=== PATIENT | female | born 1960 ===

== ENCOUNTER 2018-03-30 06:40 | Day surgery (SDC) | payer OTHER ==
[2018-01-06 11:32] VITALS: BMI 39.4
--- NOTE | 2018-03-30 07:51 | CP.SDSHP ---
Same Day Surgery H & P - History Proposed Procedure: EGD Pre-Op Diagnosis: SEE NOTES - Previous Medical/Surgical History Cardiac: Hypertension Neuro: Other Misc: Other Pain: 4.Moderate Pain - Allergies Allergies: Allergies No Known Allergies Allergy (Verified 12/13/17 10:47) - Physical Exam General Appearance: N Vital Signs: Vital Signs 03/30/18 07:09 Temperature 97.3 F L Pulse Rate 60 Respiratory 19 Rate Blood Pressure 109/70 O2 Sat by Pulse 99 Oximetry Mental Status: Alert & Oriented x3 Neuro: WNL Heart: Other Lungs: WNL GI: Other - {Optional Preform as Required} Breast: WNL Abdomen: Other Rectal: Other Integument: WNL : WNL Ortho: WNL ENT: WNL - Impression Pt. Evaluated Today:Candidate for Anesthesia & Procedure: Yes - Date & Time Time: 07:50 Short Stay Discharge - Short Stay Discharge Admitting Diagnosis/Reason for Visit: DYSPEPSIA, HISTORY OF GASTRIC POLYP Disposition: HOME/ ROUTINE
[2018-03-30] MEDS ORDERED: Lactated Ringer's 1,000 ML IV ONE (07:55)
[2018-03-30] MEDS ORDERED: Propofol 10 mg/ml Inj (20 ML) ONE (07:57)
[2018-03-30] MEDS ORDERED: Belladonna-Phenobarbital PO ONE (08:30)
[2018-03-30] MEDS ORDERED: Sucralfate 1 gm/10 ml Oral Susp UD PO ONE (08:30)
[2018-03-30 08:36] VITALS: TEMP 97.5; O2SAT 100
[2018-03-30 09:02] VITALS: BP 126/66; PULSE 63; RESP 12
== END 2018-03-30 09:20 | disposition home or self-care (01) ==
LOC: C.ENDO 06:40
PROVIDERS: ATTEND Specialist
DX: K30 Functional dyspepsia (principal); Z86.012 Personal history of benign carcinoid tumor; R10.13 Epigastric pain; K44.9 Diaphragmatic hernia without obstruction or gangrene; K31.7 Polyp of stomach and duodenum
CPT/HCPCS: 43239; 88305; J2001; J2704; J7120